=== PATIENT | female | born 1955 | race Caucasian/White ===

== ENCOUNTER → 2017-10-11 15:58 | Outpatient (CLI) | payer OTHER, SELFPAY ==
--- NOTE | 2017-10-11 16:03 | DI.US.S_ITS ---
PROCEDURE: US SOFT TISSUE HEAD AND NECK INDICATIONS: LEFT NECK SWELLING TECHNIQUE: Real-time scanning was performed of the neck region of interest, with image documentation. COMPARISON: None. FINDINGS: No masses or fluid collections seen within the superolateral aspect of the neck bilaterally. Several normal appearing lymph nodes are identified. IMPRESSION: No abnormal fluid collections or masses seen sonographically involving the superior lateral aspect of the left and right neck. If there is continued clinical concern for mass, consider contrast enhanced soft tissue neck CT for further assessment. Dictated by: Chad HERNANDEZ Interpreted: Barbara Aguila MD on 10/11/2017 at 16:54 Approved by: Barbara Aguila M.D. on 10/11/2017 at 17:04
== END ==
PROVIDERS: Family Provider Nurse Practitioner Family; PCP Nurse Practitioner Family; Visit Provider Family Medicine
DX: R22.1 Localized swelling, mass and lump, neck (principal); M79.89 Other specified soft tissue disorders
CPT/HCPCS: 76536

== ENCOUNTER → 2017-11-01 12:16 | Outpatient (CLI) | payer OTHER, SELFPAY ==
--- NOTE | 2017-11-01 | DI.MG.S_ITS ---
BILATERAL DIGITAL SCREENING MAMMOGRAM 3D/2D WITH CAD: 11/01/2017 CLINICAL: Routine screening. Family history of breast cancer. Comparison is made to exams dated: 09/24/2016 mammogram, 07/23/2015 mammogram - [facility], and 03/05/2013 mammogram - [facility]. The tissue of both breasts is predominantly fatty. Current study was also evaluated with a Computer Aided Detection (CAD) system. No significant masses, calcifications, or other findings are seen in either breast. There has been no significant interval change. IMPRESSION: NEGATIVE There is no mammographic evidence of malignancy. A 1 year screening mammogram is recommended. This exam was interpreted at Station ID: [id number]. NOTE: For mammograms, a report in lay terms will be sent to the patient. Approximately 15% of breast malignancies will not be visualized mammographically. In the management of a palpable breast mass, a negative mammogram must not discourage biopsy of a clinically suspicious lesion. Electronically Signed By: Bonnie solis/marty:11/01/2017 16:22:47 copy to: Delano Gray letter sent: Normal Exam ACR BI-RADS Category 1: Negative [id number]
== END ==
PROVIDERS: PCP Family Medicine; Visit Provider Nurse Practitioner Family
DX: Z12.31 Encounter for screening mammogram for malignant neoplasm of breast (principal); Z80.3 Family history of malignant neoplasm of breast
CPT/HCPCS: 77063; 77067

== ENCOUNTER → 2017-12-28 10:10 | Outpatient (CLI) | payer OTHER, SELFPAY ==
--- NOTE | 2017-12-28 | DI.CT.S_ITS ---
PROCEDURE: CT SOFT TISSUE NECK W CON INDICATIONS: MASS UPPER LATERAL NECK TECHNIQUE: After the administration of intravenous contrast, 3.0 mm axial sections acquired from the sella to the aortic arch. Additional oblique axial 3.0 mm sections acquired through the pharynx. 3 mm thick coronal and sagittal reformats were generated. For radiation dose reduction, the following was used: automated exposure control. COMPARISON: None. FINDINGS: Image quality: Excellent. Lymph nodes: No enlarged lymph nodes seen throughout the neck. Vessels: Visualized vasculature appears patent. Neck spaces: The oropharynx, nasopharynx, and pharynx demonstrate no mucosal lesions. The vocal cords, false vocal cords, pyriform sinuses, epiglottis, vallecula, and tongue base all appear normal. Extramucosal spaces appear unremarkable. No soft tissue inflammatory changes. No soft tissue abscess identified. Glands: Fatty infiltration of the parotid glands and the submandibular glands noted. Thyroid gland is within normal limits. Miscellaneous: Visualized brain and orbits appear normal. Lung apices appear clear. Superficial soft tissues appear normal. Bones: No suspicious bony lesions. Spine degenerative disc disease and facet arthropathy. Visualized sinuses and mastoids appear unremarkable. IMPRESSION: 1. No lymphadenopathy based on size criteria. 2. No mucosal based masses. 3. No extra-mucosal soft tissue density mass. 4. No abscess. Dictated by: Kaitlin Shaw MD, PhD on 12/28/2017 at 10:34 Approved by: Kaitlin Shaw MD, PhD on 12/28/2017 at 10:48
== END ==
PROVIDERS: PCP Family Medicine; Visit Provider Family Medicine
DX: R22.1 Localized swelling, mass and lump, neck (principal)
CPT/HCPCS: 70491; Q9967

== ENCOUNTER → 2018-10-12 11:36 | Outpatient (CLI) | payer OTHER, SELFPAY ==
--- NOTE | 2018-10-12 | DI.US.S_ITS ---
PROCEDURE: US ABDOMEN LIMITED INDICATIONS: ABNORMAL LEVELS OF OTHER SERUM ENZYMES TECHNIQUE: Real-time focused scanning was performed of the abdomen, with image documentation. COMPARISON: None. FINDINGS: The liver demonstrates prominent size. The liver demonstrates generalized increased echogenicity. This decreases ultrasound sensitivity for detection of hepatic masses. No findings of gallstones or sludge are seen. The gallbladder wall is not thickened, measuring 3 mm or less. No specific pericholecystic fluid is seen. The sonographic Villa sign is negative. There is no biliary dilatation, the common bile duct measures 3-4 mm. The visualized pancreas is unremarkable. At the area of clinical concern involving area of pain at the left mid lateral abdomen, no mass or fluid collection can be seen. IMPRESSION: Prominent, fatty liver. The gallbladder demonstrates a normal sonographic appearance. No biliary dilatation is seen. No focal abnormality can be seen at the area of pain involving the mid left lateral abdomen. Dictated by: Titi Mendez M.D. on 10/12/2018 at 11:34 Approved by: Titi Mendez M.D. on 10/12/2018 at 11:36
== END ==
PROVIDERS: PCP Student in an Organized Health Care Education/Training Program; Visit Provider Student in an Organized Health Care Education/Training Program
DX: R74.8 Abnormal levels of other serum enzymes (principal); K76.0 Fatty (change of) liver, not elsewhere classified; R53.83 Other fatigue
CPT/HCPCS: 76705

== ENCOUNTER → 2018-11-22 12:52 | Outpatient (CLI) | payer OTHER, SELFPAY ==
--- NOTE | 2018-11-22 | DI.CT.S_ITS ---
PROCEDURE: CT HEAD/BRAIN WO/W CON INDICATIONS: Fatty (change of) liver, not elsewhere classified TECHNIQUE: 4.5 mm thick angled axial sections acquired from the foramen magnum to the vertex before and after the administration of intravenous contrast, with coronal and sagittal reformats. For radiation dose reduction, the following was used: automated exposure control, adjustment of mA and/or kV according to patient size. COMPARISON: None. FINDINGS: Image quality: Excellent. CSF Spaces: Basal cisterns are patent. No extra-axial fluid collections. Ventricles are normal in size and shape. Brain: No midline shift. No intracranial bleeds or masses. No abnormal intracranial enhancement. Horton-white interface appears normal. No abnormal areas of enhancement or enhancing mass lesions. Skull and face: Calvarium and visualized facial bones appear intact, without suspicious lesions. Sinuses: Visualized sinuses and mastoids are clear. IMPRESSION: CT head without acute intracranial abnormalities. No mass, mass effect or midline shift of structures. No abnormal areas of enhancement. Dictated by: Bright Morales M.D. on 11/22/2018 at 17:09 Approved by: Bright Morales M.D. on 11/22/2018 at 17:13
[2018-11-22 13:59] LABS: BUN Creatinine Ratio 25.7 (6-22); Blood Urea Nitrogen 18 mg/dL (7-17); Calcium 10.3 mg/dL (8.4-10.2); Carbon Dioxide 26 mmol/L (22-32); Chloride 103 mmol/L (98-107); Estimated Glomerular Filt Rate > 60.0 mL/min (>60); Glucose 99 mg/dL (80-110); HEMOLYSIS < 15 (0-50); Potassium 4.5 mmol/L (3.4-5.1); Sodium 138 mmol/L (137-145)
--- NOTE | 2018-11-22 14:25 | DI.CT.S_ITS ---
PROCEDURE: CT CHEST ABD PEL W CON INDICATIONS: Fatty (change of) liver, elevated liver enzymes. TECHNIQUE: After the administration of oral and intravenous contrast, 5 mm thick sections acquired from the lung apices to the symphysis. 5 mm coronal and sagittal reformats were performed, with additional 7 mm coronal MIP reformats through the lungs. For radiation dose reduction, the following was used: automated exposure control, adjustment of mA and/or kV according to patient size. COMPARISON: None. FINDINGS: Image quality: Excellent. CHEST: Lungs and pleura: There is mild dependent atelectasis bilaterally. No acute consolidation. No pleural effusions or pneumothorax. Central and peripheral airways appear patent and normal in caliber. Mediastinum: Heart size is normal. No pericardial effusion. No mediastinal or hilar adenopathy by size criteria. Thoracic aorta and central pulmonary arteries are normal in size. Esophagus is normal in caliber. There is a small hiatal hernia. Chest wall: No axillary or supraclavicular adenopathy by size criteria. ABDOMEN: Solid organs: There is hypoattenuation of the liver consistent with fatty infiltration with relative sparing along the gallbladder fossa. The gallbladder appears within normal limits without calcified gallstones. Biliary system is non dilated. Pancreas enhances normally. Spleen is normal in size and enhancement. No adrenal nodules. Kidneys demonstrate normal size and enhancement, without hydronephrosis. Peritoneum and bowel: Bowel loops demonstrate normal wall thickness and caliber. There are surgical sutures along the cecum likely from prior appendectomy. Colonic diverticulosis is present without acute diverticulitis. No free fluid or air. Nodes and vessels: No retroperitoneal or mesenteric adenopathy by size criteria. Aorta and inferior vena cava are normal in size. Miscellaneous: No ventral hernias. PELVIS: Genitourinary: Bladder wall thickness is normal. Miscellaneous: No inguinal hernias or adenopathy. Bones: No suspicious bony lesions. No vertebral body compression fractures. IMPRESSION: 1. Hepatic steatosis without discrete mass lesion identified. 2. Colonic diverticulosis without acute diverticulitis. Dictated by: Jhonatan Parsons M.D. on 11/22/2018 at 17:36 Approved by: Jhonatan Parsons M.D. on 11/22/2018 at 17:39
[2018-11-22 16:27] LABS: Vitamin D 25 Hydroxy (D3) 37.6 ng/mL (30.0-100.0)
[2018-11-24 12:51] LABS: Free Kappa Light Chain 14.5 mg/L (3.3-19.4); Free Kappa/ Lambda Ratio 1.11 (0.26-1.65)
[2018-11-25 15:24] LABS: 1 25 Dihydroxy Vitamin D 56 pg/mL (18-72)
[2018-11-25 15:46] LABS: Vitamin A 63 mcg/dL (38-98)
[2018-11-25 21:39] LABS: Albumin 4.2 g/dL (3.8-4.8); Alpha 1 Globulin 0.3 g/dL (0.2-0.3); Alpha 2 Globulin 0.6 g/dL (0.5-0.9); Beta 1 Globulin 0.5 g/dL (0.4-0.6)
[2018-11-27 14:55] LABS: Albumin 100 %; Protein/ Creatinine Ratio 118 mg/g creat (21-161); Total Urine Protein 8 mg/dL (5-24); Urine Creatinine, Random 68 mg/dL (20-275)
== END ==
PROVIDERS: Visit Provider Student in an Organized Health Care Education/Training Program
DX: K76.0 Fatty (change of) liver, not elsewhere classified (principal); R51 Headache; R42 Dizziness and giddiness; E83.52 Hypercalcemia; I10 Essential (primary) hypertension; R74.8 Abnormal levels of other serum enzymes; K57.90 Diverticulosis of intestine, part unspecified, without perforation or abscess without bleeding; R53.83 Other fatigue; L65.9 Nonscarring hair loss, unspecified; R19.7 Diarrhea, unspecified; R73.01 Impaired fasting glucose
CPT/HCPCS: 36415; 70470; 71260; 74177; 80048; 82306; 82652; 83519; 83883; 84155; 84156; 84165; 84166; 84590; 86335; Q9967

== ENCOUNTER → 2018-11-24 09:58 | Outpatient (CLI) | payer OTHER, SELFPAY ==
[2018-11-26 15:40] LABS: Calcium 24 Hour Urine 210 mg/day (100-300); Calcium Urine Random 11.2; Collection Time Urine 24 Hours; Total Volume Urine 1875 mL
== END ==
PROVIDERS: Visit Provider Student in an Organized Health Care Education/Training Program
DX: E83.52 Hypercalcemia (principal)
CPT/HCPCS: 36415; 82340

== ENCOUNTER 2018-12-26 11:41 | Emergency (ER) | payer OTHER, SELFPAY ==
[2018-12-26 11:47] VITALS: BP 156/92; PULSE 80; RESP 18; TEMP 36.6; O2SAT 100
[2018-12-26 12:11] VITALS: BP 115/68; PULSE 75; RESP 18; O2SAT 98
--- NOTE | 2018-12-26 12:12 | DI.US.S_ITS ---
PROCEDURE: US PELVIC COMPLETE INDICATIONS: RIGHT LOWER QUADRANT PAIN TECHNIQUE: Real-time scanning was performed of the pelvic organs, with image documentation. Additional endovaginal scanning was necessary due to incomplete visualization of the adnexal and endometrial structures by transabdominal scanning. COMPARISON: None. FINDINGS: Transabdominal scanning: Limited scanning through the kidneys shows no hydronephrosis. No pathologic free abdominal or pelvic fluid. Endovaginal scanning: Uterus: Uterus is normal in size at 4.7 x 2.3 x 3.2 cm. The endometrium measures 2.3 mm in combined thickness. Ovaries: Right ovary measures 3 x 1.3 x 0.9 cm in size and is within normal limits. Left ovary measures 2.5 x 0.9 x 0.8 cm in size and is within normal limits. IMPRESSION: Unremarkable ultrasound examination of uterus and bilateral ovaries. No pelvic free fluid. No gross abnormality is seen in right lower quadrant abdomen. Dictated by: Edd Sandoval M.D. on 12/26/2018 at 13:54 Approved by: Edd Sandoval M.D. on 12/26/2018 at 13:55
--- NOTE | 2018-12-26 12:14 | ED.ABDPAIN ---
HPI - Abdominal Pain <KODY Valdes - Last Filed: 12/26/18 15:45> General Chief Complaint: Abdominal Pain Stated Complaint: Pain in lower right side Time Seen by Provider: 12/26/18 11:53 Source: patient Mode of arrival: Ambulatory Limitations: no limitations History of Present Illness HPI narrative: This is a 63-year-old female, nonsmoker, who presents to ED with low right-sided abdominal pain for last 4-5 days which has gotten worse since the onset. She denies fever, chills, nausea or vomiting, appetite or bowel movement changes or urinary symptoms such as urgency, frequency, or burning. Patient denies vaginal bleeding or unusual vaginal discharge. Patient reports pain is pressure and throbbing like and worsens with lifting right leg up and lying on affected side during sleep. Patient had history of appendectomy about 4-5 years ago at [facility]. Patient had chronic diarrhea problem but after she had taken antibiotic medication that was prescribed by Dr. Liz she no longer has this problem and has been feeling well with daily regular bowel movement and no longer feels tired. Patient had abdominal CT and ultrasound in September and October of this year before the treatment for diarrhea. Patient reports last BM was this morning without blood. Normal colonoscopy in February 2018. Related Data Home Medications Medication Instructions Recorded Confirmed omeprazole 20 mg PO QDAY@0600 #0 12/10/11 12/26/18 naproxen sodium [Aleve] 220 mg PO QDAYP PRN #0 06/15/12 12/26/18 ascorbic acid (vitamin C) [Vitamin 1,000 mg PO DAILY 12/26/18 12/26/18 C] irbesartan 75 mg PO DAILY 12/26/18 12/26/18 multivitamin 1 cap PO DAILY 12/26/18 12/26/18 Previous Rx's Medication Instructions Recorded fenofibrate nanocrystallized 48 mg PO HS #30 06/15/12 [Tricor] Allergies Allergy/AdvReac Type Severity Reaction Status Date / Time atorvastatin [From Lipitor] AdvReac Intermediate Muscle Pain Verified 12/26/18 12:05 Review of Systems <KODY Valdes - Last Filed: 12/26/18 15:45> Review of Systems Narrative: General: Denies fever, chills, fatigue, malaise, sweats. HEENT: Denies sinus pain, ear pain, sore throat, difficulty swallowing, dizziness. Respiratory: Denies dyspnea, cough, wheezing, hemoptysis, sputum. Cardiovascular: Denies chest pain, palpitations, orthopnea, edema. Gastrointestinal: See HPI : Denies dysuria, frequency, incontinence, hematuria, urinary retention. Musculoskeletal: Denies weakness, joint pain or bony pain. Skin: Denies rash, skin lesions, or other. Neurologic: Denies weakness, headache, numbness, change in speech, confusion, seizures, incoordination. Psychiatric: No concerning psychosocial issues. 12-point review of systems is negative except for those stated above. Patient History <KODY Valdes - Last Filed: 12/26/18 15:45> Medical History Chronic GERD (Acute) Diverticulosis (Acute) Hypertension (Acute) Surgical History History of appendectomy (Acute) Social History Smoking Status: Never smoker alcohol intake frequency: 0-2 drinks per day Substance Use Type: does not use Exam <KODY Valdes - Last Filed: 12/26/18 15:45> Narrative Exam Narrative: General appearance: well developed, well nourished, in no acute distress. Head: normocephalic, atraumatic, no scalp lesions, non-tender. Eye: pupil equal, round. EOMI. Nose: nares patent. Oral: mucosa moist. Neck/Thyroid: neck supple, full range of motion, no visible masses. Skin: no suspicious rashes, lesions over visible areas. Warm and dry. Heart: no clubbing, no cyanosis, no edema. Lungs: Breathing even and unlabored. No stridor. No accessory muscles used. Chest: normal shape and expansion. Neurologic: alert and oriented. 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 Psych: good eye contact, normal affect. Initial Vital Signs Initial Vital Signs: Vital Signs Temperature 97.9 F 12/26/18 11:47 Pulse Rate 80 12/26/18 11:47 Respiratory Rate 18 12/26/18 11:47 Blood Pressure 156/92 H 12/26/18 11:47 Pulse Oximetry 100 12/26/18 11:47 GI Inspection: normal to inspection and non-distended Palpation: soft, No guarding, No hernia, No mass, No rigid and tender (Right lower quadrant) Auscultation: normal bowel sounds <Emir Richardson DO - Last Filed: 12/26/18 15:46> Initial Vital Signs Initial Vital Signs: Vital Signs Temperature 97.9 F 12/26/18 11:47 Pulse Rate 80 12/26/18 11:47 Respiratory Rate 18 12/26/18 11:47 Blood Pressure 156/92 H 12/26/18 11:47 Pulse Oximetry 100 12/26/18 11:47 Scores <KODY Valdes - Last Filed: 12/26/18 15:45> GCS Agustina coma scale eye opening: Spontaneous Roberts coma scale verbal response: Orientated Roberts coma scale motor response: Obey commands Agustina coma scale total score: 15 Course <KODY Valdes - Last Filed: 12/26/18 15:45> Orders Ordered: ED Orders 12/26/18 11:58 Basic Metabolic Panel Stat Complete Blood Count AUTO DIFF Stat 12/26/18 12:12 US pelvic complete Stat Discontinued Medications Acetaminophen (Tylenol) 650 mg PO NOW ONE Stop: 12/26/18 12:48 Last Admin: 12/26/18 12:59 Dose: 650 mg Documented by: SAMMIE Ketorolac Tromethamine (Toradol) 30 mg IV NOW ONE Stop: 12/26/18 12:48 Last Admin: 12/26/18 13:00 Dose: 30 mg Documented by: SAMMIE Reevaluation(s) Reevaluation #1: Pain at 1/10 at rest Time: 13:45 Vital Signs Vital signs: Vital Signs - 8 hr 12/26/18 11:47 12/26/18 12:11 12/26/18 13:03 Temperature 97.9 F Pulse Rate 80 75 70 Respiratory Rate 18 18 18 Blood Pressure 156/92 H Blood Pressure [Left Arm] 115/68 115/70 Pulse Oximetry 100 98 12/26/18 14:21 Temperature Pulse Rate 72 Respiratory Rate 16 Blood Pressure Blood Pressure [Left Arm] 117/87 Pulse Oximetry 96 <Emir Richardson DO - Last Filed: 12/26/18 15:46> Orders Ordered: ED Orders 12/26/18 11:58 Basic Metabolic Panel Stat Complete Blood Count AUTO DIFF Stat 12/26/18 12:12 US pelvic complete Stat Discontinued Medications Acetaminophen (Tylenol) 650 mg PO NOW ONE Stop: 12/26/18 12:48 Last Admin: 12/26/18 12:59 Dose: 650 mg Documented by: SAMMIE Ketorolac Tromethamine (Toradol) 30 mg IV NOW ONE Stop: 12/26/18 12:48 Last Admin: 12/26/18 13:00 Dose: 30 mg Documented by: SAMMIE Vital Signs Vital signs: Vital Signs - 8 hr 12/26/18 11:47 12/26/18 12:11 12/26/18 13:03 Temperature 97.9 F Pulse Rate 80 75 70 Respiratory Rate 18 18 18 Blood Pressure 156/92 H Blood Pressure [Left Arm] 115/68 115/70 Pulse Oximetry 100 98 12/26/18 14:21 Temperature Pulse Rate 72 Respiratory Rate 16 Blood Pressure Blood Pressure [Left Arm] 117/87 Pulse Oximetry 96 MDM - Abdominal Pain <KODY Valdes - Last Filed: 12/26/18 15:45> Differential Diagnosis Differential diagnosis: Likely abdominal pain and other (ovarian cyst, ovarian mass, abdominal muscle strain) Medical Records Attestation: I reviewed the patient's medical records. Lab Data Attestation: I reviewed the patient's lab results. Result diagrams: 12/26/18 11:58 12/26/18 11:58 Labs: Lab Results 12/26/18 12/26/18 Range/Units 11:58 11:58 WBC 6.3 (4.5-11.0) X10^3/uL RBC 4.61 (4.0-5.2) X10^6/uL Hgb 14.9 (12.0-16.0) g/dL Hct 43.1 (36-46) % MCV 93.5 (80-100) fL MCH 32.4 (26-34) PG MCHC 34.7 (30-36) % RDW 12.9 (11.6-14.8) % Plt Count 267 (150-400) X10^3/uL Neut % (Auto) 61.9 (50-75) % Lymph % (Auto) 28.9 (25-40) % [place] % (Auto) 5.9 (3-14) % Eos % (Auto) 2.5 (2-4) % Baso % (Auto) 0.8 (0-2) % Neut # (Auto) 3900 (6634-5370) /uL Lymph # (Auto) 1800 (2580-5890) /uL [place] # (Auto) 400 (0-900) /uL Eos # (Auto) 200 (0-450) /uL Baso # (Auto) 100 (0-100) /uL Sodium 139 (137-145) mmol/L Potassium 3.6 (3.4-5.1) mmol/L Chloride 102 (98-107) mmol/L Carbon Dioxide 26 (22-32) mmol/L BUN 18 H (7-17) mg/dL Creatinine 0.80 (0.52-1.04) mg/dL Estimated GFR > 60.0 (>60) mL/min BUN/Creatinine Ratio 22.5 H (6-22) Glucose 112 H (80-110) mg/dL Calcium 10.6 H (8.4-10.2) mg/dL Point of care testing: Urine Dip Bedside Urine Glucose Negative Bedside Urine Bilirubin - Negative Bedside Urine Ketone - Negative Urine Specific [place] 1.010 Bedside Urine Occult Blood - Negative Bedside Urine pH 6.5 Bedside Urine Protein - Negative Bedside Urine Urobilinogen - Negative Bedside Urine Nitrite - Negative Bedside Urine Leukocytes - Negative Esterase Imaging Data US - abdomen: Radiologist's impression: [address] [address] Ultrasound Report Signed Patient: Alysia Ram [facility]#: [id number] : 8Acct:[id number] Age/Sex: 63 / FDate of Service: 12/26/18 Loc: ED Accession Number: [id number] Procedure: US pelvic complete Ordering Provider: Jose Olvera PROCEDURE: US PELVIC COMPLETE INDICATIONS: RIGHT LOWER QUADRANT PAIN TECHNIQUE: Real-time scanning was performed of the pelvic organs, with image documentation. Additional endovaginal scanning was necessary due to incomplete visualization of the adnexal and endometrial structures by transabdominal scanning. COMPARISON: None. FINDINGS: Transabdominal scanning: Limited scanning through the kidneys shows no hydronephrosis. No pathologic free abdominal or pelvic fluid. Endovaginal scanning: Uterus: Uterus is normal in size at 4.7 x 2.3 x 3.2 cm. The endometrium measures 2.3 mm in combined thickness. Ovaries: Right ovary measures 3 x 1.3 x 0.9 cm in size and is within normal limits. Left ovary measures 2.5 x 0.9 x 0.8 cm in size and is within normal limits. IMPRESSION: Unremarkable ultrasound examination of uterus and bilateral ovaries. No pelvic free fluid. No gross abnormality is seen in right lower quadrant abdomen. Dictated by: Edd Sandoval M.D. on 12/26/2018 at 13:54 Approved by: Edd Sandoval M.D. on 12/26/2018 at 13:55 MDM Narrative Medical decision making narrative: This is a 63-year-old female presents to with very low right lower quadrant pain for last 4-5 days without constitutional symptoms. Patient describes this as similar to her appendicitis pain that is aggravated with movements and ambulation but without fever, nausea vomiting, or decreased appetite. Patient has history of appendectomy with recent normal abdominal CT and ultrasound tests within last 1-2 months for chronic diarrhea and showed colonic diverticulosis. Patient has been already treated with antibiotic medications by PCP and states has been feeling well. Physical exam showed some tenderness to palpate in RLQ but no other peritoneal signs. Last colonoscopy in February 2018 with normal findings per patient. Blood tests today were on remarkable without leukocytosis. Urine test does not indicate infection. Pelvic ultrasound was completed with normal ovaries and uterus. Findings were discussed with the patient. Patient was medicated with IV Toradol and Tylenol to treat her discomfort as this could be abdominal muscle strain and patient reports pain has improved. Vital signs stable in ED. Patient advised to follow with her primary care physician if pain persists and return precautions were discussed. Patient verbalized understanding and agrees with the treatment plan. <Emir Richardson, - Last Filed: 12/26/18 15:46> Lab Data Labs: Lab Results 12/26/18 12/26/18 Range/Units 11:58 11:58 WBC 6.3 (4.5-11.0) X10^3/uL RBC 4.61 (4.0-5.2) X10^6/uL Hgb 14.9 (12.0-16.0) g/dL Hct 43.1 (36-46) % MCV 93.5 (80-100) fL MCH 32.4 (26-34) PG MCHC 34.7 (30-36) % RDW 12.9 (11.6-14.8) % Plt Count 267 (150-400) X10^3/uL Neut % (Auto) 61.9 (50-75) % Lymph % (Auto) 28.9 (25-40) % [place] % (Auto) 5.9 (3-14) % Eos % (Auto) 2.5 (2-4) % Baso % (Auto) 0.8 (0-2) % Neut # (Auto) 3900 (0044-2995) /uL Lymph # (Auto) 1800 (0222-2574) /uL [place] # (Auto) 400 (0-900) /uL Eos # (Auto) 200 (0-450) /uL Baso # (Auto) 100 (0-100) /uL Sodium 139 (137-145) mmol/L Potassium 3.6 (3.4-5.1) mmol/L Chloride 102 (98-107) mmol/L Carbon Dioxide 26 (22-32) mmol/L BUN 18 H (7-17) mg/dL Creatinine 0.80 (0.52-1.04) mg/dL Estimated GFR > 60.0 (>60) mL/min BUN/Creatinine Ratio 22.5 H (6-22) Glucose 112 H (80-110) mg/dL Calcium 10.6 H (8.4-10.2) mg/dL Point of care testing: Urine Dip Bedside Urine Glucose Negative Bedside Urine Bilirubin - Negative Bedside Urine Ketone - Negative Urine Specific [place] 1.010 Bedside Urine Occult Blood - Negative Bedside Urine pH 6.5 Bedside Urine Protein - Negative Bedside Urine Urobilinogen - Negative Bedside Urine Nitrite - Negative Bedside Urine Leukocytes - Negative Esterase Discharge Plan Departure Patient Disposition: Home Clinical Impression: Right lower quadrant abdominal pain Abdominal muscle strain Qualifiers: Encounter type: initial encounter Qualified Code(s): S39.011A - Strain of muscle, fascia and tendon of abdomen, initial encounter Discharge Date/Time: 12/26/18 14:24 Instructions: DI for Abdominal Pain-Adult, DI for Abdominal Muscle Strain Activity Restrictions/Additional Instructions: You have been diagnosed with [right lower quadrant pain. Lab tests today are looking good. There is no indication of urinary tract infection per urine test. Pelvic ultrasound with unremarkable results.]. What to do: *Take your medications as directed. Please take [id number] Tylenol upto 4000 mg in 24 hr period and Aleve or Motrin products upto 3 times a day with food for discomfort. *Follow up with your primary care provider in 2-3 days, call for an appointment. Let them know you were seen in the ED and that we asked you to be seen in follow up. *Return to ED if you have any new, worsening, or concerning symptoms, such as [fever, chest pain, breathing difficulty, unable to tolerate fluids, worsening pain or any acute concerns]. Prescriptions: No Action omeprazole 20 MG capsule,delayed release(DR/EC) 20 mg PO QDAY@0600 Qty: 0 RF: 0 naproxen sodium [Aleve] 220 MG tablet 220 mg PO QDAYP PRN (Reason: Pain (Scale Score 1-3)) Qty: 0 RF: 0 fenofibrate nanocrystallized [Tricor] 48 MG tablet 48 mg PO HS Qty: 30 RF: 2 ascorbic acid (vitamin C) [Vitamin C] 1,000 mg Tablet 1,000 mg PO DAILY RF: 0 multivitamin Capsule 1 cap PO DAILY RF: 0 irbesartan 75 mg Tablet 75 mg PO DAILY RF: 0 Referrals: Luisana Liz MD [Primary Care Provider] - <Emir Richardson DO - Last Filed: 12/26/18 15:46> Sign Out Provider Sign Out Attestation: Dr Richardson Co-Sign Statement: I was available for consultation during this patient's emergency department visit. This chart is signed by myself for administrative purposes only. I did not have direct contact with this patient during this visit. They were seen independently by the APC.
[2018-12-26 12:21] LABS: Add Manual Diff / Slide Review NO; Basophils Absolute Auto 100 /uL (0-100); Basophils Percent Auto 0.8 % (0-2); Eosinophils Absolute Auto 200 /uL (0-450); Eosinophils Percent Auto 2.5 % (2-4); Hematocrit 43.1 % (36-46); Hemoglobin 14.9 g/dL (12.0-16.0); Lymphocytes Absolute Auto 1800 /uL (1100-4500); Lymphocytes Percent Auto 28.9 % (25-40); Mean Corpuscular HGB Conc 34.7 % (30-36); Mean Corpuscular Hemoglobin 32.4 PG (26-34); Mean Corpuscular Volume 93.5 fL (80-100); Monocytes Absolute Auto 400 /uL (0-900); Monocytes Percent Auto 5.9 % (3-14); Neutrophils Absolute Auto 3900 /uL (1500-7000); Neutrophils Percent Auto 61.9 % (50-75); Platelet Count 267 X10^3/uL (150-400); Red Blood Cell Count 4.61 X10^6/uL (4.0-5.2); Red Cell Distribution Width 12.9 % (11.6-14.8); White Blood Cell Count 6.3 X10^3/uL (4.5-11.0)
[2018-12-26 12:27] LABS: BUN Creatinine Ratio 22.5 (6-22); Blood Urea Nitrogen 18 mg/dL (7-17); Calcium 10.6 mg/dL (8.4-10.2); Carbon Dioxide 26 mmol/L (22-32); Chloride 102 mmol/L (98-107); Estimated Glomerular Filt Rate > 60.0 mL/min (>60); Glucose 112 mg/dL (80-110); HEMOLYSIS 44 (0-50); Potassium 3.6 mmol/L (3.4-5.1); Sodium 139 mmol/L (137-145)
[2018-12-26] MEDS: ACETAMINOPHEN 325 MG TABLET 650 MG PO (12:59)
[2018-12-26] MEDS: KETOROLAC 60 MG/2 ML VIAL 30 MG IV (13:00)
[2018-12-26 13:03] VITALS: BP 115/70; PULSE 70; RESP 18
[2018-12-26 14:21] VITALS: BP 117/87; PULSE 72; RESP 16; O2SAT 96
== END 2018-12-26 14:24 | disposition home or self-care (01) ==
PROVIDERS: Emergency Provider Nurse Practitioner Family; PCP Student in an Organized Health Care Education/Training Program
DX: R10.31 Right lower quadrant pain (principal); S39.011A Strain of muscle, fascia and tendon of abdomen, initial encounter
CPT/HCPCS: 36415; 76830; 76856; 80048; 81003; 85025; 96374; 99283; 99284; J1885

== ENCOUNTER → 2019-10-04 08:05 | Outpatient (CLI) | payer OTHER, SELFPAY ==
[2019-10-04 08:48] LABS: Add Manual Diff / Slide Review NO; Basophils Absolute Auto 100 /uL (0-100); Basophils Percent Auto 1.1 % (0-2); Eosinophils Absolute Auto 100 /uL (0-450); Eosinophils Percent Auto 2.1 % (2-4); Hematocrit 42.9 % (36-46); Hemoglobin 14.4 g/dL (12.0-16.0); Lymphocytes Absolute Auto 1400 /uL (1100-4500); Mean Corpuscular HGB Conc 33.5 % (30-36); Mean Corpuscular Hemoglobin 31.7 PG (26-34); Mean Corpuscular Volume 94.5 fL (80-100); Monocytes Absolute Auto 400 /uL (0-900); Neutrophils Absolute Auto 3700 /uL (1500-7000); Neutrophils Percent Auto 64.8 % (50-75); Platelet Count 277 X10^3/uL (150-400); Red Blood Cell Count 4.54 X10^6/uL (4.0-5.2); White Blood Cell Count 5.7 X10^3/uL (4.5-11.0)
[2019-10-04 09:29] LABS: BUN Creatinine Ratio 16.5 (6-22); Blood Urea Nitrogen 15 mg/dL (7-17); Calcium 11.1 mg/dL (8.4-10.2); Carbon Dioxide 22 mmol/L (22-32); Chloride 105 mmol/L (98-107); Estimated Glomerular Filt Rate > 60.0 mL/min (>60); Glucose 112 mg/dL (80-110); HEMOLYSIS < 15 (0-50); Potassium 4.4 mmol/L (3.4-5.1); Sodium 136 mmol/L (137-145)
== END ==
PROVIDERS: PCP Student in an Organized Health Care Education/Training Program; Referring Provider Physician Assistant; Visit Provider Physician Assistant
DX: R19.7 Diarrhea, unspecified (principal)
CPT/HCPCS: 36415; 80048; 85025

== ENCOUNTER → 2019-11-14 15:53 | Outpatient (CLI) | payer OTHER, SELFPAY ==
--- NOTE | 2019-11-14 16:10 | DI.MG.S_ITS ---
Patient Name: JOHN FAJARDO date: 1955 Sex: F Attending Physician: Agusto Indications: Date: 11/14/2019 16:02 At the request of: ROGERIO VALDEZ Procedure: MM screening mammo BI BILATERAL DIGITAL SCREENING MAMMOGRAM 3D/2D WITH CAD: 11/14/2019 CLINICAL: Routine screening. Family history of breast cancer. Comparison is made to exams dated: 11/01/2017 mammogram, 09/24/2016 mammogram, and 07/23/2015 mammogram - [facility]. The tissue of both breasts is predominantly fatty. Current study was also evaluated with a Computer Aided Detection (CAD) system. No significant masses, calcifications, or other findings are seen in either breast. There has been no significant interval change. IMPRESSION: NEGATIVE There is no mammographic evidence of malignancy. A 1 year screening mammogram is recommended. This exam was interpreted at Station ID: [id number]. NOTE: For mammograms, a report in lay terms will be sent to the patient. Approximately 15% of breast malignancies will not be visualized mammographically. In the management of a palpable breast mass, a negative mammogram must not discourage biopsy of a clinically suspicious lesion. Electronically Signed By: Quan Cameron M.D., jr/marty:11/14/2019 16:16:34 copy to: Delano Gray letter sent: Normal Exam ACR BI-RADS Category 1: Negative [id number]
== END ==
PROVIDERS: PCP Student in an Organized Health Care Education/Training Program; Referring Provider Student in an Organized Health Care Education/Training Program; Visit Provider Student in an Organized Health Care Education/Training Program
DX: Z12.31 Encounter for screening mammogram for malignant neoplasm of breast (principal); Z80.3 Family history of malignant neoplasm of breast
CPT/HCPCS: 77063; 77067

== ENCOUNTER → 2021-01-02 10:27 | Outpatient (CLI) | payer OTHER, SELFPAY ==
--- NOTE | 2021-01-02 10:43 | DI.CT.S_ITS ---
PROCEDURE: CT ABDOMEN PELVIS W CON INDICATIONS: Abdominal/pelvic pain with diarrhea. TECHNIQUE: After the administration of oral and IV contrast, axial sections were acquired from the lung bases to the pubic symphysis. Coronal and sagittal reformats were performed. For radiation dose reduction, the following was used: automated exposure control, adjustment of mA and/or kV according to patient size. COMPARISON: November 22, 2018. FINDINGS: Image quality: Excellent. Lung bases: Unremarkable. Heart: No significant findings. ABDOMEN: Liver: Persistent decreased attenuation liver, compatible with hepatic steatosis. Gallbladder: No gallbladder wall thickening or pericholecystic fluid. Biliary ducts: Unremarkable. Pancreas: Unremarkable. Spleen: Unremarkable. Adrenal Glands: Unremarkable. Kidneys and Ureters: Unremarkable. Stomach and Bowel: No evidence of intestinal obstruction. Colonic diverticulosis. Suture material at the cecum, suggesting prior appendectomy. Peritoneum: No abnormal intraperitoneal fluid. No free air. Ventral Wall: No hernia. Abdominal Nodes: No retroperitoneal or mesenteric adenopathy by size criteria. Vessels: Aorta and inferior vena cava are normal in size. PELVIS: Pelvic Organs: Unremarkable. Bladder: Unremarkable. Pelvic Nodes: No enlarged lymph nodes. Miscellaneous: No inguinal hernias are seen. Bones: No acute abnormality. Mild disc height loss with posterior disc osteophyte complex at L5-S1. IMPRESSION: 1. No acute intra-abdominal/pelvic abnormality. 2. Extensive colonic diverticulosis. Dictated by: Fabian Ordoñez M.D. on 01/02/2021 at 11:47 Approved by: Fabian Ordoñez M.D. on 01/02/2021 at 11:52
== END ==
PROVIDERS: PCP Student in an Organized Health Care Education/Training Program; Referring Provider Student in an Organized Health Care Education/Training Program; Visit Provider Student in an Organized Health Care Education/Training Program
DX: R10.9 Unspecified abdominal pain (principal); R19.7 Diarrhea, unspecified; R10.2 Pelvic and perineal pain; K57.90 Diverticulosis of intestine, part unspecified, without perforation or abscess without bleeding
CPT/HCPCS: 74177; 87507

== ENCOUNTER → 2021-01-02 12:03 | Outpatient (CLI) | payer OTHER, SELFPAY ==
[2021-01-03 19:54] LABS: Adenovirus F 40/41 Not Detected (Not Detect); Astrovirus Not Detected (Not Detect); Campylobacter Not Detected (Not Detect); Clostridium difficile toxin AB Not Detected (Not Detect); Cryptosporidium Not Detected (Not Detect); Cyclospora cayetanensis Not Detected (Not Detect); Entamoeba histolytica Not Detected (Not Detect); Enteroaggregative E.coli Not Detected (Not Detect); Enteropathogenic E.coli Not Detected (Not Detect); Enterotoxigenic E.coli It/st Not Detected (Not Detect); Giardia lamblia Not Detected (Not Detect); Norovirus GI/GII Not Detected (Not Detect); Plesiomonsa shigelloides Not Detected (Not Detect); Rotavirus A Not Detected (Not Detect); Salmonella Not Detected (Not Detect); Sapovirus Not Detected (Not Detect); Shiga-like toxin-prod E.coli Not Detected (Not Detect); Shigella/Enteroinvasive E.coli Not Detected (Not Detect); Vibrio Not Detected (Not Detect); Vibrio cholerae Not Detected (Not Detect); Yersinia enterocolitica Not Detected (Not Detect)
== END ==
PROVIDERS: PCP Student in an Organized Health Care Education/Training Program; Referring Provider Physician Assistant; Visit Provider Physician Assistant
DX: R19.7 Diarrhea, unspecified (principal)
CPT/HCPCS: 87507